=== PATIENT | male | born 1995 ===

== ENCOUNTER 2016-10-25 11:50 | Outpatient (CLI) | payer BC ==
[2016-10-25 13:39] LABS: Lymphocytes BF 9.5 %; Monocytes Body Fluid 61.5 %
== END 2016-10-25 11:51 | disposition home or self-care (01) ==
LOC: LABHHL 11:50
PROVIDERS: ATTEND Orthopaedic Surgery
DX: M25.462 Effusion, left knee (principal)
CPT/HCPCS: 85048; 87116; 89051